=== PATIENT | female | born 1970 | race Caucasian/White ===

== ENCOUNTER → 2024-10-19 | Outpatient (REF) | payer MEDICAID, SELFPAY ==
[2024-10-19 08:19] LABS: Hematocrit 27.6 % (37-47); Hemoglobin 8.9 g/dL (12.0-15.0); Mean Corp Hgb Conc 32.2 g/dL (32-36); Mean Corpuscular Volume 103.4 fL (81-99); Mean Platelet Vol. 10.5 fl (6.2-12.0); Platelet Count 337 K/mm3 (150-450); RBC Distribution Width CV 13.4 % (11.6-14.6); RBC Distribution Width SD 50.5 fl (35.1-43.9); Red Blood Count 2.67 M/mm3 (4.2-5.4); White Blood Count 8.4 K/mm3 (4.4-11.0)
[2024-10-19 09:07] LABS: Anion Gap 15 (5-15); BUN 27 mg/dL (4-19); BUN/Creat Ratio 23.2 RATIO (10-20); Calcium,Total 10.2 mg/dL (7.6-11.0); Carbon Dioxide 22.5 mmol/L (21.0-32.0); Chloride 104 mmol/L (98-108); Cholesterol 141 mg/dL (<=200); Glucose 164 mg/dL (70-99); Low Density Lipoprotein Calc. 57 mg/dL; Potassium 3.6 mmol/L (3.3-5.1); Triglycerides 236 mg/dL; Very Low Density Lipoprotein 47 mg/dL (5-40); cholesterol:hdl ratio screen 3.80
== END | disposition home or self-care (01) ==
LOC: OLS.SANC 05:00
DX: J44.9 Chronic obstructive pulmonary disease, unspecified (principal); K72.90 Hepatic failure, unspecified without coma; E03.9 Hypothyroidism, unspecified; E78.5 Hyperlipidemia, unspecified
CPT/HCPCS: 36415; 80048; 80061; 85027

== ENCOUNTER → 2024-10-26 05:00 | Outpatient (REF) | payer MEDICAID, SELFPAY ==
--- OUTSIDE RECORDS SUMMARY | 2024-10-26 04:28 | XMS RPT_ITS | CCD ---
Author Organization [facility] Care Team Providers Care Screw Machine Set Up Operator Name Role Phone Marlon ALVA Rebeccachad Attending Unavail able Results Test Name Value Interpretation Reference Range Facil ity Basic Metabolic Profile (BMP )on 10-19-2024 BUN/CRE 23.2 RATIO High 10-20 [facility] Comment on above: Order Comment: 402-2 Performed By: #### L 500.2500, L500.4100, L100.0500 #### [facility] [address] [place], [address] Calcium [Mass/Vol] 10.2 mg/dL Normal 7.6-11.0 [facility] Comment on above: Order Comment: 402-2 Performed By: #### L 500.2500, L500.4100, L100.0500 #### [facility] [address] [place], [address] Chloride [Moles/Vol] 104 mmol/L Normal 98-108 [facility] Comment on above: Order Comment: 402-2 Performed By: #### L 500.2500, L500.4100, L100.0500 #### [facility] [address] [place], [address] CO2 [Moles/Vol] 22.5 mmol/L Normal 21.0-32.0 [facility] Comment on above: Order Comment: 402-2 Performed By: #### L 500.2500, L500.4100, L100.0500 #### [facility] [address] [place], [address] Creatinine [Mass/Vol] 1.15 mg/dL Normal 0.70-1.20 [facility] Comment on above: Order Comment: 402-2 Performed By: #### L 500.2500, L500.4100, L100.0500 #### [facility] [address] [place], [address] GAP 15 Normal 5-15 [facility] Comment on above: Order Comment: 402-2 Performed By: #### L 500.2500, L500.4100, L100.0500 #### [facility] [address] [place], [address] GFR/1.73 sq M.predicted among non-blacks MDRD (S/P/Bld) [Vol rate/Area] 56 mL/min/{1.73_m2} Low >60 [facility] Comment on above: Order Comment: 402-2 Result Comment: mL/m in/1.73m2 CKD-EPI Creatinine Equation (2020) Performed By: #### L 500.2500, L500.4100, L100.0500 #### [facility] [address] [place], [address] Glucose [Mass/Vol] 164 mg/dL High 70-99 [facility] Comment on above: Order Comment: 402-2 Performed By: #### L 500.2500, L500.4100, L100.0500 #### [facility] [address] [place], [address] Potassium [Moles/Vol] 3.6 mmol/L Normal 3.3-5.1 [facility] Comment on above: Order Comment: 402-2 Performed By: #### L 500.2500, L500.4100, L100.0500 #### [facility] [address] [place], [address] Sodium [Moles/Vol] 142 mmol/L Normal 133-145 [facility] Comment on above: Order Comment: 402-2 Performed By: #### L 500.2500, L500.4100, L100.0500 #### [facility] [address] [place], [address] Urea nitrogen [Mass/Vol] 27 mg/dL High 4-19 [facility] Comment on above: Order Comment: 402-2 Performed By: #### L 500.2500, L500.4100, L100.0500 #### [facility] [address] [place], [address] CBC-Complete Blood Cnt No ffon 10-19-2024 Erythrocyte distribution width (RBC) [Ratio] 13.4 % Normal 11.6-14.6 [facility] Comment on above: Order Comment: 402-2 Performed By: #### L 500.2500, L500.4100, L100.0500 #### [facility] [address] [place], [address] Hematocrit (Bld) [Volume fraction] 27.6 % Low 37-47 [facility] Comment on above: Order Comment: 402-2 Performed By: #### L 500.2500, L500.4100, L100.0500 #### [facility] [address] [place], [address] Hemoglobin (Bld) [Mass/Vol] 8.9 g/dL Low 12.0-15.0 [facility] Comment on above: Order Comment: 402-2 Performed By: #### L 500.2500, L500.4100, L100.0500 #### [facility] [address] [place], [address] MCH (RBC) [Entitic mass] 33.3 pg High 27.0-32.0 [facility] Comment on above: Order Comment: 402-2 Performed By: #### L 500.2500, L500.4100, L100.0500 #### [facility] [address] [place], [address] MCHC (RBC) [Mass/Vol] 32.2 g/dL Normal 32-36 [facility] Comment on above: Order Comment: 402-2 Performed By: #### L 500.2500, L500.4100, L100.0500 #### [facility] [address] [place], [address] MCV (RBC) [Entitic vol] 103.4 fL High 81-99 [facility] Comment on above: Order Comment: 402-2 Performed By: #### L 500.2500, L500.4100, L100.0500 #### [facility] [address] [place], [address] Platelet mean volume (Bld) [Entitic vol] 10.5 fL Normal 6.2-12.0 [facility] Comment on above: Order Comment: 402-2 Performed By: #### L 500.2500, L500.4100, L100.0500 #### [facility] [address] [place], [address] Platelets (Bld) [#/Vol] 337 10*3/uL Normal 150-450 [facility] Comment on above: Order Comment: 402-2 Performed By: #### L 500.2500, L500.4100, L100.0500 #### [facility] [address] [place], [address] RBC (Bld) [#/Vol] 2.67 10*6/uL Low 4.2-5.4 [facility] Comment on above: Order Comment: 402-2 Performed By: #### L 500.2500, L500.4100, L100.0500 #### [facility] [address] [place], [address] RDW SD 50.5 fl High 35.1-43.9 [facility] Comment on above: Order Comment: 402-2 Performed By: #### L 500.2500, L500.4100, L100.0500 #### [facility] [address] [place], [address] WBC (Bld) [#/Vol] 8.4 10*3/uL Normal 4.4-11.0 [facility] Comment on above: Order Comment: 402-2 Performed By: #### L 500.2500, L500.4100, L100.0500 #### [facility] [address] [place], [address] Lipid Profileon 10-19-2024 CHOL:HDL 3.80 Normal [facility] Comment on above: Order Comment: 402-2 Performed By: #### L 500.2500, L500.4100, L100.0500 #### [facility] [address] [place], [address] Cholesterol [Mass/Vol] 141 mg/dL Normal <=200 [facility] Comment on above: Order Comment: 402-2 Result Comment: Chol esterol level, Desirable <200 mg/dL Borderline high cholesterol 200-239 mg/dL High cholesterol >=240 mg/dL Recommendations of the NCEP Adult Treatment Panel for the following risk-cutoff thresholds for the [place] population. Performed By: #### L 500.2500, L500.4100, L100.0500 #### [facility] [address] [place], [address] Cholesterol in HDL [Mass/Vol] 37 mg/dL Low [facility] Comment on above: Order Comment: 402-2 Result Comment: [place] on[place] Cholesterol Education Program (NCEP) guidelines: <40 mg/dL: Low HDL-cholesterol (major risk factor for CHD) >= 60 mg/dL: High HDL-cholesterol (negative risk factor for CHD) HDL-cholesterol is affected by a number of factors, e.g. smoking, exercise, hormones, sex and age. Performed By: #### L 500.2500, L500.4100, L100.0500 #### [facility] [address] [place], [address] Cholesterol in LDL [Mass/Vol] 57 mg/dL Normal [facility] Comment on above: Order Comment: 402-2 Result Comment: Bord ynfiax=748-757 mg/dL Higher Ysta=936 mg/dL or greater Performed By: #### L 500.2500, L500.4100, L100.0500 #### [facility] [address] [place], [address] Cholesterol in VLDL [Mass/Vol] 47 mg/dL High 5-40 [facility] Comment on above: Order Comment: 402-2 Performed By: #### L 500.2500, L500.4100, L100.0500 #### [facility] [address] [place], [address] Triglyceride [Mass/Vol] 236 mg/dL High [facility] Comment on above: Order Comment: 402-2 Result Comment: The drugs N-Acetylcysteine and Metamizole may falsely depress this assay. Normal range: <150 mg/dL Borderline High: 150-199 mg/dL High: 200-499 mg/dL Very High: >500 mg/dL Performed By: #### L 500.2500, L500.4100, L100.0500 #### [facility] [address] [place], [address] Encounters Encounter Date Encounter Type Care Provider Facility Start: 10-19-2024 [facility] Facility:[facility] Payers Date Payer Category Payer Self-pay Summary Purpose Family History No Family History Records Found Advance Directives No Advanced Directives Records Found Additional Source Comments INFORMATION SOURCE (unrecogn ized section and content) DATE CREATED AUTHOR 10/20/2024 [facility] FOR RECORDS PERTAINING TO PATIENTS WHO ARE OR HAVE BEEN ENROLLED IN A CHEMICAL DEPENDENCY/SUBSTANCEABUSE PROGRAM, SOME INFORMATION MAY BE OMITTED. This clinical summary was aggregated from multiple sources. Caution should be exercised in using it in the provision of clinical care. This summary normalizes information from multiple sources, and as a consequence, information in this document may materially change the coding, format and clinical context of patient data. In addition, data may be omitted in some cases. CLINICAL DECISIONS SHOULD BE BASED ON THE PRIMARY CLINICAL RECORDS. [employer] [facility]. provides no warranty or guarantee of the accuracy or completeness of information in this document.
[2024-10-26 08:47] LABS: Hematocrit 26.2 % (37-47); Hemoglobin 8.6 g/dL (12.0-15.0); Immature Granulocytes Count 0.020 X10^3/uL (0.0-0.0); Mean Corp Hgb Conc 32.8 g/dL (32-36); Mean Corpuscular Volume 102.3 fL (81-99); Mean Platelet Vol. 10.2 fl (6.2-12.0); NRBC Flagged by Analyzer 0 % (0-5); Platelet Count 285 K/mm3 (150-450); RBC Distribution Width CV 13.3 % (11.6-14.6); RBC Distribution Width SD 50.2 fl (35.1-43.9); Red Blood Count 2.56 M/mm3 (4.2-5.4); White Blood Count 7.4 K/mm3 (4.4-11.0)
== END ==
LOC: OLS.SANC 05:00
DX: J96.90 Respiratory failure, unspecified, unspecified whether with hypoxia or hypercapnia (principal)
CPT/HCPCS: 36415; 85025

== ENCOUNTER → 2024-11-14 | Outpatient (REF) | payer MEDICAID, SELFPAY ==
[2024-11-14 09:31] LABS: T3 Total - Triiodothyronine 1.05 ng/mL (0.80-2.00); T4 Total, Thyroxin 8.5 ug/dL (4.8-13.9)
== END | disposition home or self-care (01) ==
LOC: OLS.SANC 05:00
PROVIDERS: Visit Provider Internal Medicine
DX: E03.9 Hypothyroidism, unspecified (principal)
CPT/HCPCS: 36415; 84436; 84443; 84480

== ENCOUNTER → 2024-11-27 | Outpatient (REF) | payer MEDICAID, SELFPAY ==
[2024-11-27 09:24] LABS: Hematocrit 27.4 % (37-47); Hemoglobin 8.8 g/dL (12.0-15.0); Immature Granulocytes Count 0.020 X10^3/uL (0.0-0.0); Mean Corp Hgb Conc 32.1 g/dL (32-36); Mean Corpuscular Volume 101.5 fL (81-99); Mean Platelet Vol. 10.7 fl (6.2-12.0); NRBC Flagged by Analyzer 0 % (0-5); POSITIVE MORPHOLOGY YES; Platelet Count 266 K/mm3 (150-450); RBC Distribution Width CV 13.0 % (11.6-14.6); RBC Distribution Width SD 48.0 fl (35.1-43.9); Red Blood Count 2.70 M/mm3 (4.2-5.4); White Blood Count 5.6 K/mm3 (4.4-11.0)
[2024-11-27 09:25] LABS: Differential Indicated SCAN CRITERIA MET
[2024-11-27 10:08] LABS: Anion Gap 10 (5-15); BUN 27 mg/dL (4-19); BUN/Creat Ratio 22.5 RATIO (10-20); Calcium,Total 10.2 mg/dL (7.6-11.0); Carbon Dioxide 27.6 mmol/L (21.0-32.0); Chloride 107 mmol/L (98-108); Glucose 101 mg/dL (70-99); Potassium 3.8 mmol/L (3.3-5.1)
== END | disposition home or self-care (01) ==
LOC: OLS.SANC 05:00
DX: J96.90 Respiratory failure, unspecified, unspecified whether with hypoxia or hypercapnia (principal)
CPT/HCPCS: 36415; 80048; 85025

== ENCOUNTER → 2024-12-24 | Outpatient (REF) | payer MEDICAID, SELFPAY ==
[2024-12-24 08:35] LABS: Hematocrit 29.7 % (37-47); Hemoglobin 9.7 g/dL (12.0-15.0); Mean Corp Hgb Conc 32.7 g/dL (32-36); Mean Corpuscular Volume 99.3 fL (81-99); Mean Platelet Vol. 9.9 fl (6.2-12.0); Platelet Count 256 K/mm3 (150-450); RBC Distribution Width CV 12.9 % (11.6-14.6); RBC Distribution Width SD 46.8 fl (35.1-43.9); Red Blood Count 2.99 M/mm3 (4.2-5.4); White Blood Count 4.0 K/mm3 (4.4-11.0)
[2024-12-24 08:59] LABS: Anion Gap 12 (5-15); BUN 9 mg/dL (4-19); BUN/Creat Ratio 8.8 RATIO (10-20); Calcium,Total 9.9 mg/dL (7.6-11.0); Carbon Dioxide 27.8 mmol/L (21.0-32.0); Chloride 105 mmol/L (98-108); Glucose 98 mg/dL (70-99); Potassium 3.6 mmol/L (3.3-5.1)
== END | disposition home or self-care (01) ==
LOC: OLS.SANC 04:00
DX: E78.5 Hyperlipidemia, unspecified (principal); K72.90 Hepatic failure, unspecified without coma
CPT/HCPCS: 36415; 80048; 85027

== ENCOUNTER → 2024-12-27 | Outpatient (REF) | payer MEDICAID, SELFPAY ==
[2024-12-27 09:49] LABS: AST(SGOT) 21 U/L (<=31); Alanine Aminotransfer ALT/SGPT 20 U/L (<=34); Albumin, Serum 3.6 g/dL (3.5-5.0); Alkaline Phosphatase 66 U/L (35-104); Bilirubin, Direct < 0.08 mg/dL (0.00-0.30); Globulin 2.8 g/dL (2.2-4.2)
== END | disposition home or self-care (01) ==
LOC: OLS.SANC 05:00
DX: K72.90 Hepatic failure, unspecified without coma (principal); E03.9 Hypothyroidism, unspecified
CPT/HCPCS: 36415; 80076

== ENCOUNTER → 2025-01-22 | Outpatient (REF) | payer MEDICAID, SELFPAY | END | disposition home or self-care (01) | LOC: OLS.SANC 05:00 | DX: J44.9 Chronic obstructive pulmonary disease, unspecified (principal); E78.5 Hyperlipidemia, unspecified; E03.9 Hypothyroidism, unspecified | CPT/HCPCS: 36415; 84439; 84443 ==